=== PATIENT | female | born 1970 | race Caucasian/White ===

== ENCOUNTER 2020-08-22 07:17 | Day surgery (SDC) | payer OTHER ==
[2020-08-14 10:47] LABS: BASOPHILS % (AUTO) 0.4 % (0-1); EOSINOPHILS % (AUTO) 0.7 % (0-6); LYMPHOCYTES # (AUTO) 1.3 X10'3 (1.1-4.8); LYMPHOCYTES % (AUTO) 22.8 % (21-51); MEAN CORPUSCULAR HEMOGLOBIN 32.5 PG (27.0-31.0); MEAN CORPUSCULAR VOLUME 98.5 FL (78-98); MEAN PLATELET VOLUME 8.5 FL (7.4-10.4); MONOCYTES # (AUTO) 0.5 X10'3 (0-0.9); MONOCYTES % (AUTO) 9.1 % (2-12); NEUTROPHILS # (AUTO) 3.8 X10'3 (1.8-7.7); PRE OP HEMATOCRIT 41.2 % (35.0-45.0); PRE OP HEMOGLOBIN 13.6 g/dL (12.0-16.0); PRE OP PLATELET COUNT 226 X10'3 (140-440); RED BLOOD COUNT 4.19 X10'6 (4.20-5.60); RED CELL DISTRIBUTION WIDTH 12.7 % (11.5-14.5)
[2020-08-14 11:06] LABS: ALBUMIN 4.2 G/DL (3.4-5.0); ALKALINE PHOSPHATASE 72 IU/L (46-116); BLOOD UREA NITROGEN 13 MG/DL (7-18); CHLORIDE 106 MMOL/L (99-107); CREATININE 1.18 MG/DL (0.40-0.90); PRE OP ALT 35 U/L (30-65); PRE OP ANION GAP 8 (8-16); PRE OP AST 24 U/L (10-37); PRE OP BILIRUB, TOTAL 0.4 MG/DL (0.0-1.0); PRE OP GLUCOSE 97 MG/DL (70-104); PRE OP POTASSIUM 4.5 MMOL/L (3.4-5.1); PRE OP SODIUM 140 MMOL/L (135-145); TOTAL CARBON DIOXIDE 26.1 MMOL/L (24-32); TOTAL PROTEIN 8.4 G/DL (6.4-8.2); eGFR 49 ML/MIN
[~2020-08-22] VITALS: Ht 162.6 cm; Wt 66.0 kg
[~2020-08-22 07:17] MED LIST: NO HOME MEDS; ceFAZolin 2gm in dextrose, iso 50 ML IV ONE; famotidine 20mg tablet PO ONE; ringers solution, lacted 1,000 ML IV SCH
[2020-08-22] MEDS ORDERED: LIDOcaine 1% 30ml preserv. free vial ONE (08:11)
[2020-08-22] MEDS ORDERED: BUPIVAcaine/PF 2.5mg/ml (0.25%) 10ml vial ONE ×2 (08:52→12:57)
[2020-08-22 10:48] VITALS: BP 123/69
[2020-08-22 10:55] VITALS: BP 123/69
[2020-08-22] MEDS ORDERED: fentaNYL/PF 50MCG/1 ML 2ML syringe ONE (13:12)
[2020-08-22] MEDS ORDERED: MIDAZolam 5mg/5ml vial ONE (13:12)
[2020-08-22] MEDS ORDERED: propofol inj 20 ML IV ONE (14:14)
[2020-08-22] MEDS ORDERED: acetaminophen 1,000mg/100ml IV 100 ML IV ONE (14:14)
[2020-08-22] MEDS ORDERED: LIDOcaine 2% (20mg/ml) 5ml vial ONE (14:14)
[2020-08-22] MEDS ORDERED: meperidine/PF 25mg/ml syringe ONE (14:15)
--- NOTE | 2020-08-22 14:32 | NUR ---
Received from OR via BED, accompanied by Anesthesiologist DR DE LEON and report given by Anesthesiolgist. PATIENT A&OX4, DENIES PAIN, V/S WNL, NEUROVASCULAR CHECKS INTACT, 20G PIV LUE, SCD ON, DRESSING TO RIGHT WRIST CDI ELEVATED WITH ICEBAG APPLIED.
[2020-08-22 14:33] VITALS: BP 115/62
[2020-08-22] MEDS ORDERED: BUPIVAcaine/PF 2.5mg/ml (0.25%) 10ml vial IJ ONE (14:38)
[2020-08-22 14:40] VITALS: BP 109/64
[2020-08-22 14:50] VITALS: BP 104/65
[2020-08-22 15:00] VITALS: BP 116/66
--- NOTE | 2020-08-22 15:23 | NUR ---
PATIENT A&OX4, DENIES PAIN, V/S WNL, NEUROVASCULAR CHECKS INTACT, 20G PIV D/C, SCD OFF, DRESSING TO RIGHT WRIST CDI ELEVATED WITH ICEBAG APPLIED. I HAVE REVIEWED D/C INSTRUCTIONS WITH PATIENT AND FAMILY AND THEY HAVE VERBALIZED UNDERSTANDING. PATIENT D/C HOME WITH ALL BELONGINGS AND FAMILY GAVE TRANSPORT HOME. PT HAS PAIN MEDS AT HOME FROM MD OFFICE.
== END 2020-08-22 15:23 | disposition home or self-care (01) ==
LOC: PRE-OP 07:17 → PAS 15:23
PROVIDERS: ATTEND Orthopaedic Surgery Hand Surgery
DX: M92.211 Osteochondrosis (juvenile) of carpal lunate [Kienbock], right hand (principal); M25.531 Pain in right wrist; G89.29 Other chronic pain; Z20.822 Contact with and (suspected) exposure to COVID-19; Z87.891 Personal history of nicotine dependence; Z90.710 Acquired absence of both cervix and uterus; Z90.5 Acquired absence of kidney; Z98.890 Other specified postprocedural states
CPT/HCPCS: 25215; 36415; 80053; 82948; 85025; 87635; A6402; C1776; J0131; J2001; J2175; J2250; J2704; J3010; J3490; J7120; A4215; A4618; A6449